=== PATIENT | female | born 2000 | race Caucasian/White ===

== ENCOUNTER 2018-03-03 05:27 | Emergency (ER) | payer OTHER ==
[2018-03-03] MEDS ORDERED: ONDANSETRON 4 MG/2 ML VIAL IVP ONE (05:34)
[2018-03-03] MEDS ORDERED: NS 1,000 ML IV ONE ×2 (05:34)
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
[2018-03-03 06:00] LABS: PLATELET COUNT 398 10^3/uL (150-400)
[2018-03-03 09:25] VITALS: BP 114/76
== END 2018-03-03 11:45 | disposition home or self-care (01) ==
DX: R11.2 Nausea with vomiting, unspecified (principal); T76.21XA Adult sexual abuse, suspected, initial encounter; E86.9 Volume depletion, unspecified
CPT/HCPCS: 96365; J0696; J2405